=== PATIENT | male | born 1990 | race Two or more races ===

== ENCOUNTER 2017-05-12 09:58 | Emergency (ER) | payer SELFPAY ==
[~2017-05-12] VITALS: Ht 165.1 cm; Wt 61.2 kg
[2017-05-12 10:49] VITALS: BP 122/77
== END 2017-05-12 11:37 | disposition home or self-care (01) ==
LOC: ER 09:58
DX: N45.1 Epididymitis (principal); Z87.442 Personal history of urinary calculi
CPT/HCPCS: 76870

== ENCOUNTER 2020-08-07 16:56 | Inpatient (IN) | payer SELFPAY ==
[~2020-08-07] VITALS: Ht 170.2 cm; Wt 59.6 kg
[2020-08-07 17:28] LABS: Basophils # (auto) 0.1 10 ^3/uL (0-0.2); Basophils % (auto) 0.6 % (0.0-2.0); Eosinophils # (auto) 0 10 ^3/uL (0-0.8); Eosinophils % (auto) 0.1 % (0.0-7.0); Hematocrit 44.5 % (41.0-53.0); Hemoglobin 15.7 g/dL (13.5-17.5); Lymphocytes % (auto) 6.6 % (10.0-50.0); Mean Corpuscular Hemoglobin 31.3 pg (28.0-32.0); Mean Corpuscular Hgb Conc. 35.3 g/dL (32.0-36.0); Mean Corpuscular Volume 88.5 fL (80.0-100.0); Monocytes # (auto) 0.3 10 ^3/uL (0-1.3); Monocytes % (auto) 1.8 % (0.0-12.0); Neutrophils # (auto) 13.5 10 ^3/uL (1.6-8.6); Neutrophils % (auto) 90.9 % (37.0-80.0); Nucleated Red Blood Cells % 0.1 %; Red Blood Cells 5.03 10^6/uL (4.5-5.90); Red Cell Distribution Width 12.9 % (11.8-14.3); White Blood Cell 14.8 10^3/uL (4.4-10.8)
[2020-08-07 17:49] LABS: Albumin 4.1 g/dL (3.4-5.0); Calcium 9.2 mg/dL (8.5-10.1); Potassium 3.9 mmol/L (3.5-5.1)
[2020-08-07 17:52] LABS: Bilirubin, Total 0.4 mg/dL (0.2-1.0); Total Protein 7.4 g/dL (6.4-8.2)
[2020-08-08 02:31] LABS: Urine Bacteria FEW /hpf (None Seen); Urine Blood 3+ /uL (Negative); Urine Mucus FEW (None Seen); Urine Specific Gravity 1.018 (1.001-1.035); Urine WBC 8 /hpf (0 - 3)
[2020-08-08] MEDS ORDERED: cefTRIAXone 1GM/50ML D5W 50 ML IV ONE (03:45)
[2020-08-08] MEDS ORDERED: ONDANSETRON HCL 4 MG/2 ML VIAL IV PRN (06:30)
[2020-08-08] MEDS ORDERED: ACETAMINOPHEN 325 MG TAB PO PRN (06:30)
[2020-08-08] MEDS ORDERED: TEMAZEPAM 15 MG CAP PO PRN (06:30)
[2020-08-08] MEDS ORDERED: MORPHINE SULFATE INJECTION 2 MG/ML SYRG IV PRN (06:30)
[2020-08-08] MEDS: FAMOTIDINE 20 MG TAB PO SCH (08:56)
[2020-08-08] MEDS: D5W/SOD CHLO 0.9% 1,000 ML IV SCH ×2 (13:03→20:51)
[2020-08-08 13:10] LABS: Alcohol, Urine < 3.0 mg/dL (0-10); Amphetamine Screen, Urine POSITIVE (NEGATIVE); Barbiturate Scree,Urine NEGATIVE (NEGATIVE); Benzodiazephine Screen, Urine NEGATIVE (NEGATIVE); Cannabinoid Screen, Urine NEGATIVE (NEGATIVE); Cocaine Screen, Urine NEGATIVE (NEGATIVE); Opiate Scree,Urine NEGATIVE (NEGATIVE); Phencyclidine Screen, Urine NEGATIVE (NEGATIVE)
[2020-08-08 18:45] VITALS: BP 116/68
[2020-08-08 20:00] VITALS: BP 116/68
[2020-08-08 20:50] VITALS: BP 116/68
[2020-08-08 22:00] VITALS: BP 116/68
[2020-08-09] MEDS: FAMOTIDINE 20 MG TAB PO SCH ×3 (02:47→21:27)
[2020-08-09 05:00] VITALS: BP 118/81
[2020-08-09] MEDS: D5W/SOD CHLO 0.9% 1,000 ML IV SCH ×3 (05:00→21:27)
[2020-08-09 07:31] LABS: Basophils # (auto) 0 10 ^3/uL (0-0.2); Basophils % (auto) 0.5 % (0.0-2.0); Eosinophils # (auto) 0.1 10 ^3/uL (0-0.8); Eosinophils % (auto) 1.5 % (0.0-7.0); Hematocrit 43.4 % (41.0-53.0); Hemoglobin 15.1 g/dL (13.5-17.5); Lymphocytes % (auto) 32.3 % (10.0-50.0); Mean Corpuscular Hemoglobin 31.3 pg (28.0-32.0); Mean Corpuscular Hgb Conc. 34.7 g/dL (32.0-36.0); Mean Corpuscular Volume 90.3 fL (80.0-100.0); Monocytes # (auto) 0.7 10 ^3/uL (0-1.3); Monocytes % (auto) 7.6 % (0.0-12.0); Neutrophils # (auto) 5.3 10 ^3/uL (1.6-8.6); Neutrophils % (auto) 58.1 % (37.0-80.0); Red Blood Cells 4.81 10^6/uL (4.5-5.90); Red Cell Distribution Width 12.8 % (11.8-14.3); White Blood Cell 9.2 10^3/uL (4.4-10.8)
[2020-08-09 07:52] LABS: Calcium 8.4 mg/dL (8.5-10.1); Potassium 3.9 mmol/L (3.5-5.1)
[2020-08-09] MEDS: cefTRIAXone 1GM/50ML D5W 50 ML IV SCH (08:05)
[2020-08-09 08:57] LABS: INR 1.03 (0.9-1.15); Partial Thromboplastin Time 27.4 sec (23.0-31.2)
[2020-08-09 09:00] VITALS: BP 108/59
[2020-08-09] MEDS ORDERED: IOHEXOL 350 MG/ML 100ML IJ ONE (12:04)
[2020-08-09] MEDS ORDERED: LIDOCAINE 2%HCL (LOCAL ANESTH.) INJ 20ML MDV ONE (12:04)
[2020-08-09] MEDS ORDERED: fentaNYL CITRATE 100 MCG/2 ML VL ONE (12:09)
[2020-08-09] MEDS ORDERED: MIDAZOLAM HCL 2MG/2ML 2ml VIAL (1mg/ml) ONE (12:10)
[2020-08-09 13:00] VITALS: BP 112/70
[2020-08-09 16:25] VITALS: BP 103/67
[2020-08-09] MEDS ORDERED: KETOROLAC TROMETH 30 MG/ML 1ML VIAL IV PRN (16:45)
[2020-08-09] MEDS: HYDROcodone-ACET 5/325MG TAB PO PRN (17:35)
[2020-08-09 22:00] VITALS: BP 110/50
[2020-08-10 05:00] VITALS: BP 116/65
[2020-08-10] MEDS: D5W/SOD CHLO 0.9% 1,000 ML IV SCH ×2 (05:34→13:00)
[2020-08-10] MEDS: HYDROcodone-ACET 5/325MG TAB PO PRN (05:42)
[2020-08-10] MEDS: FAMOTIDINE 20 MG TAB PO SCH (08:17)
[2020-08-10] MEDS: cefTRIAXone 1GM/50ML D5W 50 ML IV SCH (08:17)
[2020-08-10 09:00] VITALS: BP 117/68
== END 2020-08-10 13:45 | disposition home or self-care (01) | DRG 690 ==
LOC: ER 16:56 → OVERFLOW 08-08 06:19 → CENTRAL 08-08 06:19
PROVIDERS: ADMIT Nurse Practitioner; ATTEND Family Medicine
PROC: 0T9030Z Drainage of Right Kidney with Drainage Device, Percutaneous Approach (ICD-10-PCS; principal; 2020-08-09)
PROC: BT1D1ZZ Fluoroscopy of Right Kidney, Ureter and Bladder using Low Osmolar Contrast (ICD-10-PCS; 2020-08-09)
PROC: BT41ZZZ Ultrasonography of Right Kidney (ICD-10-PCS; 2020-08-09)
DX: N13.6 Pyonephrosis (principal); Z87.442 Personal history of urinary calculi; Z93.6 Other artificial openings of urinary tract status; Z20.822 Contact with and (suspected) exposure to COVID-19
CPT/HCPCS: 36415; 50432; 74176; 74425; 76942; 80048; 80053; 80307; 81001; 85025; 85049; 85610; 85730; 87426; 96365; 99152; C1729; G0378; J0696; J2250; J7042

== ENCOUNTER 2020-09-10 21:40 | Emergency (ER) | payer SELFPAY ==
[~2020-09-10] VITALS: Ht 167.6 cm; Wt 72.6 kg
[2020-09-10 23:16] LABS: Basophils # (auto) 0 10 ^3/uL (0-0.2); Basophils % (auto) 0.7 % (0.0-2.0); Eosinophils # (auto) 0.1 10 ^3/uL (0-0.8); Eosinophils % (auto) 1.9 % (0.0-7.0); Hematocrit 40.8 % (41.0-53.0); Hemoglobin 14.5 g/dL (13.5-17.5); Lymphocytes # (auto) 1.8 10 ^3/uL (0.4-5.4); Lymphocytes % (auto) 33.9 % (10.0-50.0); Mean Corpuscular Hgb Conc. 35.5 g/dL (32.0-36.0); Mean Corpuscular Volume 87.3 fL (80.0-100.0); Monocytes # (auto) 0.4 10 ^3/uL (0-1.3); Monocytes % (auto) 8.3 % (0.0-12.0); Neutrophils # (auto) 2.9 10 ^3/uL (1.6-8.6); Neutrophils % (auto) 55.2 % (37.0-80.0); Red Blood Cells 4.68 10^6/uL (4.5-5.90); Red Cell Distribution Width 13.1 % (11.8-14.3); White Blood Cell 5.3 10^3/uL (4.4-10.8)
[2020-09-10 23:51] LABS: BUN/Creatinine Ratio 8.2; Calcium 9.2 mg/dL (8.5-10.1); Potassium 3.6 mmol/L (3.5-5.1)
[2020-09-11 02:47] LABS: Urine Amorphous Crystal FEW /hpf (None Seen); Urine Bacteria FEW /hpf (None Seen); Urine Blood Negative /uL (Negative); Urine Mucus FEW (None Seen); Urine Specific Gravity 1.011 (1.001-1.035); Urine Sperm PRESENT /hpf (None Seen); Urine WBC 11 /hpf (0 - 3)
[2020-09-11 03:40] VITALS: BP 105/65
== END 2020-09-11 04:13 | disposition home or self-care (01) ==
LOC: ER 21:42
DX: N20.0 Calculus of kidney (principal); N99.522 Malfunction of incontinent external stoma of urinary tract
CPT/HCPCS: 36415; 80048; 81001; 85025

== ENCOUNTER 2020-11-03 15:29 | Emergency (ER) | payer SELFPAY ==
[~2020-11-03] VITALS: Ht 165.1 cm; Wt 59.0 kg
[2020-11-03 16:06] LABS: Basophils # (auto) 0.1 10 ^3/uL (0-0.2); Basophils % (auto) 0.5 % (0.0-2.0); Eosinophils # (auto) 0 10 ^3/uL (0-0.8); Eosinophils % (auto) 0.1 % (0.0-7.0); Hematocrit 46.7 % (41.0-53.0); Hemoglobin 15.9 g/dL (13.5-17.5); Lymphocytes # (auto) 1.1 10 ^3/uL (0.4-5.4); Lymphocytes % (auto) 9.9 % (10.0-50.0); Mean Corpuscular Hemoglobin 29.6 pg (28.0-32.0); Mean Corpuscular Volume 87.2 fL (80.0-100.0); Monocytes # (auto) 0.9 10 ^3/uL (0-1.3); Monocytes % (auto) 8.5 % (0.0-12.0); Neutrophils # (auto) 8.8 10 ^3/uL (1.6-8.6); Nucleated Red Blood Cells % 0.1 %; Red Blood Cells 5.36 10^6/uL (4.5-5.90); Red Cell Distribution Width 12.9 % (11.8-14.3); White Blood Cell 10.9 10^3/uL (4.4-10.8)
[2020-11-03 16:24] LABS: Albumin 3.8 g/dL (3.4-5.0); Calcium 9.4 mg/dL (8.5-10.1)
[2020-11-03 16:27] LABS: BUN/Creatinine Ratio 8.3; Bilirubin, Total 0.7 mg/dL (0.2-1.0); Total Protein 7.7 g/dL (6.4-8.2)
[2020-11-03 17:37] VITALS: BP 129/86
[2020-11-03] MEDS ORDERED: HYDROcodone-ACET 10/325MG TAB PO ONE (18:00)
[2020-11-03] MEDS ORDERED: CIPROFLOXACIN HCL 500 MG TAB PO ONE (18:15)
[2020-11-03] MEDS ORDERED: KETOROLAC TROMETH 30 MG/ML 1ML VIAL IV ONE (18:15)
[2020-11-03 18:17] LABS: Urine Amorphous Crystal FEW /hpf (None Seen); Urine Bacteria FEW /hpf (None Seen); Urine Blood 2+ /uL (Negative); Urine Mucus FEW (None Seen); Urine Specific Gravity 1.018 (1.001-1.035); Urine WBC 86 /hpf (0 - 3)
== END 2020-11-03 17:44 | disposition home or self-care (01) ==
LOC: EDUNIT# 15:29 → ER 15:29
DX: N13.2 Hydronephrosis with renal and ureteral calculous obstruction (principal); F17.210 Nicotine dependence, cigarettes, uncomplicated
CPT/HCPCS: 36415; 74176; 80053; 81001; 85025; 96374; 99284; J1885

== ENCOUNTER 2021-03-23 10:35 | Inpatient (IN) | payer MEDICAID ==
[~2021-03-23] VITALS: Ht 170.2 cm; Wt 136.0 kg
[2021-03-23] MEDS ORDERED: SODIUM CHLORIDE 0.9% 1,000 ML IVB ONE (10:45)
[2021-03-23] MEDS ORDERED: ONDANSETRON HCL 4 MG/2 ML VIAL IV ONE (10:45)
[2021-03-23] MEDS ORDERED: MORPHINE SULFATE 4 MG/ML SYR/VIAL IV ONE (10:45)
[2021-03-23 11:12] LABS: Basophils # (auto) 0.1 10 ^3/uL (0-0.2); Basophils % (auto) 0.8 % (0.0-2.0); Eosinophils # (auto) 0.1 10 ^3/uL (0-0.8); Eosinophils % (auto) 0.6 % (0.0-7.0); Hematocrit 45.4 % (41.0-53.0); Hemoglobin 15.8 g/dL (13.5-17.5); Lymphocytes # (auto) 1.4 10 ^3/uL (0.4-5.4); Lymphocytes % (auto) 13.1 % (10.0-50.0); Mean Corpuscular Hemoglobin 30.1 pg (28.0-32.0); Mean Corpuscular Hgb Conc. 34.7 g/dL (32.0-36.0); Mean Corpuscular Volume 86.7 fL (80.0-100.0); Monocytes # (auto) 0.4 10 ^3/uL (0-1.3); Monocytes % (auto) 4.1 % (0.0-12.0); Neutrophils # (auto) 8.7 10 ^3/uL (1.6-8.6); Neutrophils % (auto) 81.4 % (37.0-80.0); Nucleated Red Blood Cells % 0.3 %; Red Blood Cells 5.23 10^6/uL (4.5-5.90); Red Cell Distribution Width 13.4 % (11.8-14.3); White Blood Cell 10.7 10^3/uL (4.4-10.8)
[2021-03-23 11:36] LABS: Albumin 3.9 g/dL (3.4-5.0); Calcium 9.2 mg/dL (8.5-10.1)
[2021-03-23 11:40] LABS: BUN/Creatinine Ratio 12.3; Bilirubin, Total 0.4 mg/dL (0.2-1.0); Total Protein 6.9 g/dL (6.4-8.2)
[2021-03-23 13:42] LABS: Urine Bacteria NONE SEEN /hpf (None Seen); Urine Blood 1+ /uL (Negative); Urine Specific Gravity 1.011 (1.001-1.035); Urine WBC 2 /hpf (0 - 3)
[2021-03-23] MEDS ORDERED: ACETAMINOPHEN 325 MG TAB PO PRN (21:00)
[2021-03-23] MEDS ORDERED: TEMAZEPAM 15 MG CAP PO PRN (21:00)
[2021-03-24 08:05] LABS: Basophils # (auto) 0 10 ^3/uL (0-0.2); Basophils % (auto) 0.1 % (0.0-2.0); Eosinophils # (auto) 0 10 ^3/uL (0-0.8); Hematocrit 44.4 % (41.0-53.0); Hemoglobin 15.2 g/dL (13.5-17.5); Lymphocytes # (auto) 1.3 10 ^3/uL (0.4-5.4); Mean Corpuscular Hemoglobin 29.6 pg (28.0-32.0); Mean Corpuscular Hgb Conc. 34.2 g/dL (32.0-36.0); Mean Corpuscular Volume 86.6 fL (80.0-100.0); Monocytes # (auto) 1.1 10 ^3/uL (0-1.3); Monocytes % (auto) 7.7 % (0.0-12.0); Neutrophils # (auto) 11.7 10 ^3/uL (1.6-8.6); Neutrophils % (auto) 83.2 % (37.0-80.0); Nucleated Red Blood Cells % 0.1 %; Red Blood Cells 5.13 10^6/uL (4.5-5.90); Red Cell Distribution Width 13.5 % (11.8-14.3)
[2021-03-24 08:46] LABS: Potassium 3.8 mmol/L (3.5-5.1)
[2021-03-24 09:05] LABS: BUN/Creatinine Ratio 8.7; Calcium 9.1 mg/dL (8.5-10.1)
[2021-03-24] MEDS: PANTOPRAZOLE 40 MG TAB PO SCH (09:13)
[2021-03-24 16:55] LABS: Urine Bacteria MANY /hpf (None Seen); Urine Blood 1+ /uL (Negative); Urine Mucus MANY (None Seen); Urine WBC 17 /hpf (0 - 3)
[2021-03-24 17:22] LABS: Urine Specific Gravity 1.023 (1.001-1.035)
[2021-03-24] MEDS: ONDANSETRON HCL 4 MG/2 ML VIAL IV PRN (18:37)
[2021-03-24] MEDS: MORPHINE SULFATE 4 MG/ML SYR/VIAL IV PRN (18:38)
[2021-03-24] MEDS: cefTRIAXone 1GM/50ML D5W 50 ML IV SCH (18:59)
[2021-03-24] MEDS: HYDROcodone-ACET 5/325MG TAB PO PRN (20:46)
[2021-03-24 22:52] VITALS: BP 107/63
[2021-03-25 05:00] VITALS: BP 141/77
[2021-03-25] MEDS: MORPHINE SULFATE 4 MG/ML SYR/VIAL IV PRN ×3 (06:04→20:46)
[2021-03-25 08:00] VITALS: BP 112/65
[2021-03-25] MEDS ORDERED: IOHEXOL 300 MG/ML 100ML BOTTLE IJ ONE (09:45)
[2021-03-25] MEDS ORDERED: LIDOCAINE 2%HCL (LOCAL ANESTH.) INJ 20ML MDV ONE (09:45)
[2021-03-25] MEDS: PANTOPRAZOLE 40 MG TAB PO SCH (11:18)
[2021-03-25] MEDS: cefTRIAXone 1GM/50ML D5W 50 ML IV SCH (11:18)
[2021-03-25 12:00] VITALS: BP 119/62
[2021-03-25] MEDS: ONDANSETRON HCL 4 MG/2 ML VIAL IV PRN (12:23)
[2021-03-25 12:24] LABS: INR 1.05 (0.9-1.15); Partial Thromboplastin Time 30.7 sec (23.6-33.0)
[2021-03-25 16:00] VITALS: BP 112/58
[2021-03-25 22:00] VITALS: BP 109/56
[2021-03-26] MEDS: HYDROcodone-ACET 5/325MG TAB PO PRN ×2 (02:18→10:02)
[2021-03-26 05:00] VITALS: BP 118/67
[2021-03-26 09:00] VITALS: BP 114/71
[2021-03-26] MEDS: cefTRIAXone 1GM/50ML D5W 50 ML IV SCH (10:02)
[2021-03-26] MEDS: PANTOPRAZOLE 40 MG TAB PO SCH (10:02)
[2021-03-26] MEDS ORDERED: CIPR-173 PO (10:16)
[2021-03-26 12:36] VITALS: BP 114/71
[2021-03-26 12:38] VITALS: BP 107/70
== END 2021-03-26 14:34 | disposition home or self-care (01) | DRG 466 ==
LOC: EDBD 10:35 → ER 10:35 → OVERFLOW 20:59 → WEST WING 03-24 22:05
PROVIDERS: ADMIT Nurse Practitioner; ATTEND Family Medicine
PROC: 0T25X0Z Change Drainage Device in Kidney, External Approach (ICD-10-PCS; principal; 2021-03-25)
PROC: BT11ZZZ Fluoroscopy of Right Kidney (ICD-10-PCS; 2021-03-25)
DX: T83.032A Leakage of nephrostomy catheter, initial encounter (principal); A41.9 Sepsis, unspecified organism; N13.6 Pyonephrosis; N13.9 Obstructive and reflux uropathy, unspecified; N20.2 Calculus of kidney with calculus of ureter; F17.210 Nicotine dependence, cigarettes, uncomplicated; F15.90 Other stimulant use, unspecified, uncomplicated; Z20.822 Contact with and (suspected) exposure to COVID-19; R53.81 Other malaise; Y92.89 Other specified places as the place of occurrence of the external cause
CPT/HCPCS: 36415; 74176; 74425; 80048; 80053; 81001; 85025; 85610; 85730; 87040; 87081; 87086; 87088; 87186; 87426; 93005; 96361; 96374; 96375; C1729; G0378; J0696; J2405

== ENCOUNTER 2021-06-12 00:32 | Emergency (ER) | payer MEDICAID ==
[~2021-06-12] VITALS: Ht 167.6 cm; Wt 60.3 kg
[~2021-06-12 00:32] MED LIST: CIPR-173 PO
[2021-06-12 01:09] LABS: Basophils # (auto) 0.1 10 ^3/uL (0-0.2); Basophils % (auto) 1.3 % (0.0-2.0); Eosinophils # (auto) 0.2 10 ^3/uL (0-0.8); Eosinophils % (auto) 2.3 % (0.0-7.0); Hematocrit 43.5 % (41.0-53.0); Lymphocytes # (auto) 2.7 10 ^3/uL (0.4-5.4); Lymphocytes % (auto) 37.8 % (10.0-50.0); Mean Corpuscular Hemoglobin 30.3 pg (28.0-32.0); Mean Corpuscular Hgb Conc. 34.5 g/dL (32.0-36.0); Mean Corpuscular Volume 87.7 fL (80.0-100.0); Monocytes # (auto) 0.6 10 ^3/uL (0-1.3); Monocytes % (auto) 8.1 % (0.0-12.0); Neutrophils # (auto) 3.6 10 ^3/uL (1.6-8.6); Neutrophils % (auto) 50.5 % (37.0-80.0); Nucleated Red Blood Cells % 0.1 %; Red Blood Cells 4.95 10^6/uL (4.5-5.90); Red Cell Distribution Width 14.1 % (11.8-14.3); White Blood Cell 7.1 10^3/uL (4.4-10.8)
[2021-06-12 01:26] LABS: Albumin 3.8 g/dL (3.4-5.0); BUN/Creatinine Ratio 12.7; Calcium 9.6 mg/dL (8.5-10.1); Potassium 4.1 mmol/L (3.5-5.1)
[2021-06-12 01:29] LABS: Bilirubin, Total 0.3 mg/dL (0.2-1.0); Total Protein 7.1 g/dL (6.4-8.2)
[2021-06-12 04:03] LABS: Urine Bacteria NONE SEEN /hpf (None Seen); Urine Blood 3+ /uL (Negative); Urine Mucus FEW (None Seen); Urine Specific Gravity 1.012 (1.001-1.035); Urine WBC 50 /hpf (0 - 3); Urine WBC Clumps PRESENT /hpf (None Seen)
[2021-06-12 05:00] VITALS: BP 111/58
[2021-06-12] MEDS ORDERED: NITROFURANTOIN 100 mg CAP PO ONE (05:00)
[2021-06-12] MEDS ORDERED: OXYCODONE W/ ACETAMINOPHEN 5/325MG TABLET PO ONE (05:00)
== END 2021-06-12 05:45 | disposition home or self-care (01) ==
LOC: ER 00:32
DX: N20.0 Calculus of kidney (principal); N99.520 Hemorrhage of incontinent external stoma of urinary tract; F17.210 Nicotine dependence, cigarettes, uncomplicated; F15.10 Other stimulant abuse, uncomplicated
CPT/HCPCS: 36415; 74176; 80053; 81001; 85025